=== PATIENT | female | born 1985 | race Caucasian/White ===

== ENCOUNTER → 2017-06-24 10:32 | Outpatient (CLI) | payer OTHER, MEDICAID, SELFPAY | PROVIDERS: Family Provider Family Medicine; PCP Family Medicine; Visit Provider Family Medicine | DX: Z34.91 Encounter for supervision of normal pregnancy, unspecified, first trimester (principal); Z53.9 Procedure and treatment not carried out, unspecified reason ==

== ENCOUNTER → 2017-07-09 10:40 | Outpatient (CLI) | payer OTHER, MEDICAID, SELFPAY ==
--- NOTE | 2017-07-09 10:41 | DI.US.S_ITS ---
PROCEDURE: US OB <= 14 WEEKS FETUS INDICATIONS: DATES OUTSIDE/PRIOR DATING DATA: Last menstrual period (LMP): Unknown. LMP-based estimated date of delivery (CRYSTAL): N./A.. First dating scan (date and location): 07/09/2017. Estimated date of delivery (CRYSTAL) from first dating scan: 01/25/2018. TECHNIQUE: Real-time scanning was performed of the fetus and maternal pelvic organs, with image documentation. Endovaginal scanning was also performed to better visualize the fetus and maternal ovaries. COMPARISON: None. FINDINGS: Embryo: Gestational sac contains a yolk sac and a pole which shows crown-rump length of 4.6 cm, corresponding to estimated gestational age of 11 weeks 3 days. heart rate is 173 bpm. Measurement variability in dating: +/- 4 weeks by LMP, +/- 7 days by mean sac diameter (use before 6 weeks gestation if crown-rump length not able to be measured), +/- 5 days by crown-rump length (up to 8 weeks 6 days gestation), +/- 7 days by crown-rump length (up to 13 weeks 6 days gestation). Maternal organs: Ovaries appear normal. Limited images through the kidneys demonstrate no hydronephrosis. IMPRESSION: Live intrauterine gestation at 11 weeks 3 days gestational age by crown-rump length, CRYSTAL 01/25/2018. Dictated by: Ladarius Pierce M.D. on 07/09/2017 at 11:46 Approved by: Ladarius Pierce M.D. on 07/09/2017 at 11:48
== END ==
PROVIDERS: Family Provider Family Medicine; PCP Family Medicine; Visit Provider Family Medicine
DX: Z34.91 Encounter for supervision of normal pregnancy, unspecified, first trimester (principal); Z3A.11 11 weeks gestation of pregnancy
CPT/HCPCS: 76801; 76817

== ENCOUNTER → 2017-10-14 13:36 | Outpatient (CLI) | payer OTHER, MEDICAID, SELFPAY ==
[2017-10-14 15:08] LABS: Add Manual Diff / Slide Review NO; Basophils Percent Auto 0.4 % (0-2); Eosinophils Percent Auto 0.7 % (2-4); Hemoglobin 11.5 g/dL (12.0-16.0); Lymphocytes Percent Auto 18.3 % (25-40); Mean Corpuscular Hemoglobin 31.5 PG (26-34); Mean Corpuscular Volume 90.1 fL (80-100); Monocytes Percent Auto 5.9 % (3-14); Neutrophils Absolute Auto 6100 /uL (3000-5900); Neutrophils Percent Auto 74.7 % (50-75); Platelet Count 194 X10^3/uL (150-400); Red Blood Cell Count 3.66 X10^6/uL (4.0-5.2); Red Cell Distribution Width 13.2 % (11.6-14.8); White Blood Cell Count 8.2 X10^3/uL (4.5-11.0)
[2017-10-14 16:19] LABS: Hepatitis B Surface Antigen NEGATIVE s/c (NEGATIVE); Rubella Antibody IgG 65.5 IU/mL (>15)
[2017-10-21 11:54] LABS: Rapid Plasma Reagin NON-REACTIVE
== END ==
PROVIDERS: PCP Family Medicine; Visit Provider Family Medicine
DX: Z34.91 Encounter for supervision of normal pregnancy, unspecified, first trimester (principal)
CPT/HCPCS: 36415; 80055; 86787; 86850; 86900; 86901

== ENCOUNTER → 2017-11-18 08:07 | Outpatient (CLI) | payer OTHER, MEDICAID, SELFPAY ==
--- NOTE | 2017-11-18 08:08 | DI.US.S_ITS ---
PROCEDURE: US OB >= 14 WEEKS FETUS INDICATIONS: anatomy screening OUTSIDE/PRIOR DATING DATA: Last menstrual period (LMP): Unknown. LMP-based estimated date of delivery (CRYSTAL): N./A.. First dating scan (date and location): 07/09/2017. Estimated date of delivery (CRYSTAL) from first dating scan: 01/25/2018. TECHNIQUE: Real-time scanning was performed of the fetus, with image documentation and biometric measurements. Endovaginal scanning: No COMPARISON: None. FINDINGS: General: A single living intrauterine gestation is present. Presentation: Vertex. Placenta: Placental position is right lateral, without previa. Amniotic fluid index: 13.1 cm, normal range is 5-24 cm. heart rate: 132 beats per minute. Maternal cervical canal: 3.3 cm long. Normal lower limit is 2.5 cm. biometrics: Biparietal diameter: 31 weeks 4 days Head circumference: 33 weeks Abdominal circumference: 30 weeks 4 days Femur length: 30 weeks 1 day Estimated gestational age from initial scan: 30 weeks 2 days Composite gestational age from present scan: 31 weeks 2 days Estimated weight and percentile: 1634 g; 54 percentile Measurement variability for biometric dating: +/- 7 days from 14 weeks to 15 weeks 6 days gestation, +/- 10 days from 16 weeks to 21 weeks 6 days gestation, +/- 2 weeks from 22 weeks to 27 weeks 6 days gestation, +/- 3 weeks for 28 weeks gestation or later. weight reference: 4500 g or EFW >90/95% is considered macrosomia or large for gestational age. EFW <10% is small for gestational age. EFW 5% or less is considered intra-uterine growth restriction. Anatomic survey: Neuro: Ventricles not well-visualized. Cisterna magna is normal at 3-11 mm. Cerebellum is normal in size and morphology. Nuchal skin fold: Normal at less than 6 mm between 14-21 weeks gestational age. Face: Nose and lips, facial profile are normal. Spine: No evidence for spina bifida. Heart: 4-chambered heart is present, with normal ventricular outflow tracts. Diaphragm: Diaphragm is intact. Stomach: Left-sided stomach is present. Kidneys: No hydronephrosis. Normal is less than 5 mm in 2nd trimester, less than 7 mm in 3rd trimester. Cord: 3-vessel cord has orthotopic insertion. Bladder: Normal in size. Extremities: All 4 extremities identified. IMPRESSION: Single living IUP redemonstrated and Interval growth is normal. Anatomic survey as above. Dictated by: Petros Colvin [facility] Interpreted: Sol Martins MD on 11/18/2017 at 9:55 Approved by: Sol Martins M.D. on 11/18/2017 at 15:37
== END ==
PROVIDERS: PCP Family Medicine; Visit Provider Family Medicine
DX: Z36.89 Encounter for other specified antenatal screening (principal); Z3A.31 31 weeks gestation of pregnancy
CPT/HCPCS: 76811

== ENCOUNTER → 2017-12-05 11:43 | Outpatient (CLI) | payer OTHER, MEDICAID, SELFPAY ==
[2017-12-05 13:28] LABS: Hematocrit 32.7 % (36-46); Hemoglobin 11.3 g/dL (12.0-16.0)
[2017-12-05 13:52] LABS: GTT (PREG) 1 Hour PP 50gm Dose 168 mg/dL (76-139)
== END ==
PROVIDERS: PCP Family Medicine; Visit Provider Family Medicine
DX: Z3A.26 26 weeks gestation of pregnancy (principal)
CPT/HCPCS: 36415; 82950; 85014; 85018

== ENCOUNTER → 2018-01-09 11:41 | Outpatient (CLI) | payer OTHER, MEDICAID, SELFPAY ==
[2018-01-10 08:13] LABS: Strep Grp B PCR NEG for Grp B Strep
== END ==
PROVIDERS: PCP Family Medicine; Visit Provider Family Medicine
DX: Z3A.37 37 weeks gestation of pregnancy (principal)
CPT/HCPCS: 87653

== ENCOUNTER 2018-01-22 18:45 | Outpatient (CLI) | payer OTHER, MEDICAID, SELFPAY | END 2018-01-22 20:00 | disposition home or self-care (01) | LOC: OB 01-26 14:00 | PROVIDERS: PCP Family Medicine; Visit Provider Family Medicine | DX: Z34.83 Encounter for supervision of other normal pregnancy, third trimester (principal); Z3A.40 40 weeks gestation of pregnancy | CPT/HCPCS: 59025; G0378; G0379 ==

== ENCOUNTER 2018-01-23 07:38 | Inpatient (IN) | payer OTHER, MEDICAID, SELFPAY ==
[2018-01-23] MEDS: LACTATED RINGERS 1,000 ML 100 ML IV (09:04)
[2018-01-23] MEDS: OXYTOCIN PREMIX 30 UNIT/500 ML PLAST..BAG IV (09:04)
[2018-01-23 09:09] LABS: Add Manual Diff / Slide Review NO; Basophils Percent Auto 0.7 % (0-2); Eosinophils Percent Auto 0.7 % (2-4); Hematocrit 30.6 % (36-46); Hemoglobin 10.4 g/dL (12.0-16.0); Mean Corpuscular Hemoglobin 28.9 PG (26-34); Monocytes Percent Auto 8.9 % (3-14); Neutrophils Absolute Auto 3600 /uL (1500-7000); Neutrophils Percent Auto 64.7 % (50-75); Platelet Count 138 X10^3/uL (150-400); Red Cell Distribution Width 13.4 % (11.6-14.8); White Blood Cell Count 5.5 X10^3/uL (4.5-11.0)
--- NOTE | 2018-01-23 09:23 | P.HPOB_ITS ---
OB HPI Date/Time Date of admission: 01/23/18 Date Patient Seen: 01/23/18 Time Patient Seen: 09:15 History of Present Condition Chief complaint: obs : 3 Para: 2 Estimated Date of Delivery: 01/25/18 Estimated Gestational Age (weeks): 39+5 Narrative: Paulette Hughes is a 32 year old at 39+5 weeks gestation by first trimester US. complicated by limited care due to financial reasons. Patient frequently missed appointments due to lack of gas money. 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 She also had an abnormal 1 hour GTT and failed to complete the 3 hour GTT. Also refused to check fasting blood sugars. Second complicated by macrosomia and 1 minute shoulder dystocia. She is here for induction due to the above complications. Indications Indication for induction OB: other (See HPI) History of Present care: limited care, initiated at week # (13), number of visits (5) and pounds weight gain (33) Dating criteria: based on 1st trimester US only Ultrasounds: normal 1st trimester US and normal mid trimester US Obstetrical complications: none Medical complications: none Preadmission Labs Blood type: A (+) positive -: Antibody screen: negative, GBS status: negative, HBsAG: negative, HIV: negative, HSV 1: positive, HSV 2: positive and RPR/VDLR: negative -: Rubella: immune and Varicella: immune HCT: 33 PAP: Abnormal 1 hr GTT: 168 Prior (ies) History: 11/21/06 at 36 weeks, 7 pound 6 ounce female vacuum assisted vaginal delivery 08/23/16 at 41 weeks, 9 pound 11 ounce female, 1 minute shoulder dystocia Evaluation Evaluation Baseline heart rate: 120 Variability: Moderate (11-25) monitor accelerations: Present monitor decelerations: Absent Uterine Contraction Intensity: Mild Category of Tracing: I Cervical dilation (cm): 4 Cervical effacement (%): 75 station: -1 Laboratory results: Laboratory Tests 01/23/18 08:45 WBC 5.5 RBC 3.60 L Hgb 10.4 L Hct 30.6 L MCV 85.0 MCH 28.9 MCHC 34.0 RDW 13.4 Plt Count 138 L Neut % (Auto) 64.7 Lymph % (Auto) 25.0 Scott % (Auto) 8.9 Eos % (Auto) 0.7 L Baso % (Auto) 0.7 Neut # (Auto) 3600 [facility] Medical History Abnormal Pap smear of cervix (Acute) History of gestational diabetes (Resolved) Shoulder dystocia during labor and delivery (Resolved) Family History Father No problems noted. Mother No problems noted. Social History Smoking Status: Never smoker alcohol intake: never substance use type: marijuana Meds Home Medications Medication Instructions Recorded Confirmed Type acyclovir 400 mg tablet 400 mg PO BID #60 tab 01/09/18 01/23/18 Rx Allergies Allergy/AdvReac Type Severity Reaction Status Date / Time No Known Drug Allergies Allergy Unknown Verified 01/23/18 09:48 [NO KNOWN DRUG ALLERGIES] Review of Systems Review of Systems All systems reviewed & are unremarkable except as noted in HPI and below Exam Const General: cooperative, healthy appearing and comfortable [facility] Head: normal to inspection Ears: hearing grossly normal bilaterally Nose: external nose normal Mouth: oral mucosae normal Eyes General: appearance normal, both eyes and all related structures Neck Neck: normal visual inspection Resp Effort & Inspection: normal respiratory effort Auscultation: clear to auscultation bilaterally Cardio Rate: regular rate Rhythm: regular rhythm Heart Sounds: S1 normal and S2 normal External Female Exam: external appearance normal Manual OB Exam: dilated 4, effaced 75% and station -1 Presentation: vertex Estimated Weight (lbs): 8 Skin General: no rashes or lesions noted Neuro General: alert, awake and oriented x3 Extrem General: pedal edema (1+ on right, trace on left) Objective Labs Result Diagrams: 01/23/18 08:45 Labs: Laboratory Results - last 24 hr 01/23/18 08:45 WBC 5.5 RBC 3.60 L Hgb 10.4 L Hct 30.6 L MCV 85.0 MCH 28.9 MCHC 34.0 RDW 13.4 Plt Count 138 L Neut % (Auto) 64.7 Lymph % (Auto) 25.0 Scott % (Auto) 8.9 Eos % (Auto) 0.7 L Baso % (Auto) 0.7 Neut # (Auto) 3600 Assessment and Plan (1) 39 weeks gestation of : Current visit: Yes Status: Acute (2) Limited care: Current visit: Yes Status: Acute (3) H/O shoulder dystocia in prior , currently : Current visit: Yes Status: Acute (4) H/O macrosomia in in prior , currently : Current visit: Yes Status: Acute Plan: Plan: 32 year old at 39+5 weeks gestation with limited care, h/o macrosomia with shoulder dystocia and abnormal 1 hr GTT without completion of 3 hr GTT here for induction for the previously mentioned issues. Flynn score of 10. Plan - Pitocin induction - Epidural upon request - Anticipate vaginal delivery
[2018-01-23 09:46] VITALS: BP 122/82
--- NOTE | 2018-01-23 15:57 | PM.OBPNLAB ---
Date/Time Date Patient Seen: 01/23/18 Time Patient Seen: 15:58 Pain Control Pain control: tolerating well and epidural Pelvic Exam Dilation (cm): 7 Effacement (%): 100 station: -1 Amniotic membrane status: Ruptured (blood tinged but otherwise clear) Contractions Pitocin rate (mU/min): 18 Contraction frequency (min): 2 Contraction pattern: Regular Contraction intensity: Strong/Firm Status status: Category l Heart Rate Baseline: 120 Monitor Accelerations: Present Monitor Decelerations: Absent Monitor Variability: Moderate Assessment and Plan Assessment: active labor Plan: continuous present management
--- NOTE | 2018-01-23 18:34 | PM.OBPRVD ---
Narrative: VAGINAL DELIVERY NOTE BRIEF HISTORY: Patient is a 32-year-old [id number] at 39+5 weeks who gave on 01/23/18 at 18:06. CRYSTAL: 01/25/18 Hospital problems: 39 weeks of H/o macrosomia H/o shoulder dystocia Epidural anesthesia STAGE I: Labor Indications for Induction: h/o shoulder dystocia, h/o macrosomia, limited care Induction agents: pitocin Stage 1 onset: 01/23/18 09:10 Augmentation: AROM with clear fluid at 15:54 Complete at 17:40. Stage 1 duration 8 hours and 30 minuts. Analgesia for labor was with epidural. FHT category 1 throughout stage 1. STAGE II: Delivery The second stage of labor lasted 26 minutes. Spontaneous vaginal delivery occurred at 18:06 on 01/23/18. Presentation was vertex and RONNI orientation. Nuchal cord x1 which was reduced. There was a 30 second shoulder dystocia which resolved with McRobert's maneuver and suprapubic pressure. Infant was placed on mother's abdomen immediately after delivery. scores were 8 at one minute and 9 at five minutes. STAGE III: Placenta/Cord The third stage of labor lasted 5 minutes. Placental delivered after active management and it appeared intact with a three vessel cord. Pitocin bolus given after delivery of placenta. There were bilateral superior first degree labial tears which were repaired with 4-0 vicryl. Complications: none. EBL: 300 mL. Needle and sponge counts were correct. The vagina was inspected and no items were left in situ. Patient was doing well with Camilla, her and mother at bedside.
[2018-01-23 22:22] VITALS: TEMP 37.3
[2018-01-23] MEDS: IBUPROFEN 600 MG TABLET PO (22:22)
[2018-01-24] MEDS: IBUPROFEN 600 MG TABLET PO ×2 (04:20→10:25)
[2018-01-24] MEDS: DOCUSATE 250 MG CAPSULE PO (10:25)
--- NOTE | 2018-01-24 13:37 | P.DS_ITS ---
Discharge Providers Date of admission: 01/23/18 07:38 Primary care physician: Roslyn Meléndez DO Consults: 01/23/18 20:05 Consult to Cloth Covered Helmet Puller Routine Comment: Discharge provider: Roslyn Meléndez DO Discharge Date: 01/24/18 Summary Date Patient Seen: 01/24/18 Time Patient Seen: 13:14 Hospital Course: Patient is a 32 year old [id number] s/p on 01/23/18 after induction for the below listed reasons. She progressed well with pitocin and AROM and delivered at healthy female infant after a 30 second shoulder dystocia which resolved with McRobert's maneuver and suprapubic pressure. did well immediately after delivery. Pain well-controlled throughout labor with epidural. course was uncomplicated. Bleeding was moderate. Patient was voiding , stooling, ambulating and eating without difficulty. going well. Pain well-controlled with ibuprofen. Counseled patient to call for fevers, severe pain or bleeding through more than a pad an hour. Follow up in six weeks for exam. Exam Temp 97.6, BP 108/79, HR 59 Gen: Well-appearing, NAD CV: RRR, no murmur Lungs: CTAB Abdomen: Soft, NT/ND. Bowel tones active. Uterus firm 1 cm below umbilicus Ext: 1+ edema on right, trace on left, extremities warm Discharge Diagnosis (1) 39 weeks gestation of : Status: Acute (2) Limited care: Status: Acute (3) H/O shoulder dystocia in prior , currently : Status: Acute (4) H/O macrosomia in infant in prior , currently : Status: Acute (5) Spontaneous vaginal delivery: Status: Acute Time Spent with Patient Total time spent providing and/or coordinating discharge services: Objective Labs Result Diagrams: 01/23/18 08:45 Discharge Plan Discharge Plan Patient Disposition: Home Discharge Med Rec/Prescriptions Prescriptions: New ibuprofen 600 mg Tablet 600 mg PO Q6HR PRN (Reason: Pain, Mild (1-3)) Qty: 30 RF: 0 Discontinued acyclovir 400 mg tablet 400 mg PO BID Qty: 60 RF: 0 Follow up/Referrals: Roslyn Meléndez DO [Primary Care Provider] - 6 Weeks (Please call [facility] and make an appointment for 6 weeks) Visit Report/Discharge Packet Instructions: DI for Labor and Delivery, Vaginal Visit Report Forms: Stroke Signs & Symptoms Discharge Data Primary Care Provider: Roslyn Meléndez Attending Provider: Roslyn Meléndez Admit Date/Time: 01/23/18 07:38
[2018-01-24 14:38] VITALS: BP 122/82; PULSE 76; RESP 16; TEMP 37.3
== END 2018-01-24 16:03 | disposition home or self-care (01) | DRG 560 ==
PROVIDERS: Admitting Provider Family Medicine; PCP Family Medicine; Visit Provider Family Medicine
DX: O98.32 Other infections with a predominantly sexual mode of transmission complicating childbirth (principal); A60.00 Herpesviral infection of urogenital system, unspecified; O69.1XX0 Labor and delivery complicated by cord around neck, with compression, not applicable or unspecified; Z3A.39 39 weeks gestation of pregnancy; Z37.0 Single live birth; O66.0 Obstructed labor due to shoulder dystocia; O70.0 First degree perineal laceration during delivery
CPT/HCPCS: 01967; 36415; 59025; 59050; 59409; 85025; 86850; 86900; 86901; G0379; J2590

== ENCOUNTER 2018-07-03 11:58 | Day surgery (SDC) | payer OTHER, MEDICAID, SELFPAY ==
[2018-06-23 10:03] VITALS: BMI 26.2
[2018-07-03] VITALS (8 sets, daily range): BP systolic 111–131; BP diastolic 65–95; PULSE 45–91; RESP 13–20; TEMP 36–37.2; O2SAT 97–100; BMI 26.1
--- NOTE | 2018-07-03 | PATH_ITS ---
[facility] Accession Number: [id number] . 01 Material submitted: . PART A: cervix - 6 O'CLOCK PART B: cervix - 12 O'CLOCK PART C: cervix - DEEP CERVICAL BIOPSY PART D: endocervix - ECC . 02 Diagnosis: A. Cervix at 6 o'clock, LEEP Biopsy: High-grade squamous intraepithelial lesion/TAYLER 2-3. High-grade squamous intraepithelial lesion/TAYLER 2-3 focally involves the endocervical margin. The ectocervical margin is indetermine due to tissue disruption. . B. Cervix at 12 o'clock, LEEP Biopsy: High-grade squamous intraepithelial lesion/TAYLER 2-3. The apparent, intact ectocervical and endocervical margins are negative for dysplasia. . C. Deep Cervical Biopsy: Mildly inflamed endocervical tissue; negative for glandular squamous dysplasia or malignancy. . D. ECC: Scant endocervical tissue fragments; negative for glandular dysplasia and malignancy. [facility]/07/07/2018 . 02 Comment: This patient's previous Pap smear report ([id number], 03/07/2018) is reviewed, and the atypical squamous cells concerning for severe dysplasia present on the previous Pap smear could derive from the current biopsy tissue. These findings do correlate. . 02 Electronically signed: . Madiha Arredondo MD, Pathologist NPI- [id number] . 01 Gross description: . (A) Received in formalin, labeled 6 o'clock cervical biopsy, is an unoriented piece of cervical tissue (1.4 x 1.2 x 0.4 cm) with pale pink smooth and shiny mucosa. No nodules, masses or lesions are identified. The possible endocervical margin is inked orange and the possible ectocervical and stromal margins are inked blue. Serially sectioned and entirely submitted in cassettes A1-A2. (B) Received in formalin, labeled 12 o'clock cervical biopsy, is an unoriented piece of cervical tissue (1.5 x 0.9 x 0.2 cm) with sierra- white smooth and shiny and focally rough mucosa. No nodules, masses or lesions are identified. The possible endocervical margin is inked orange and the possible ectocervical and stromal margins are inked blue. Serially sectioned and entirely submitted in cassettes B1-B2. (C) Received in formalin, labeled deep cervical biopsy, is an unoriented piece of cervical tissue (1.0 x 0.9 x 0.2 cm) with a neville-pink dull rough mucosa. No nodules, masses or lesions are identified. The ectocervical and endocervical margins cannot be determined therefore the resection margin is inked blue. Serially sectioned and entirely submitted in cassette C1. (D) Received in formalin, labeled ECC, is sierra-neville turbid mucoid material containing multiple fragments of red-brown tissue (1.8 x 1.5 x 0.3 cm in aggregate). Filtered and entirely submitted in cassette D1. ([id number]) /[facility] . 02 Pathologist provided ICD-10: N87.1 . 02 CPT . 199205, 436345, 627754, 354177 Performed at: 01 [facility] [address] [id number] MD Hiram De Oliveira MD Phone: [phone] Performed at: 02 [facility] [id number] [place] [id number] MD Ebony Salgado MD Phone: [phone]
--- NOTE | 2018-07-03 13:16 | PM.PREOP ---
Pre-operative Note Interval Note History & Physical reviewed/Exam performed by Physician: Yes Changes to H&P: No
[2018-07-03] MEDS: LACTATED RINGERS 1,000 ML 100 ML IV (13:22)
--- NOTE | 2018-07-03 13:33 | SUR.OPER ---
Lithotomy on padded OR bed, head on pillow, arms secured on padded arm boards at <90 degrees abduction. Legs secured in padded yellow fins stirrups.
[2018-07-03] MEDS: POTASSIUM IODIDE/IODINE 473 ML SOLUTION TOP (13:41)
--- NOTE | 2018-07-03 13:46 | PM.OP.1 ---
Operative Date/Time/Diagnoses Date of procedure: 07/03/18 Time of procedure: 13:46 Pre-op diagnosis: TAYLER-III of the cervix Post-op diagnosis: same Procedure & Clinicians Procedure: LEEP with ECC Same procedure as scheduled: Yes Indications: TAYLER-III of the cervix Surgeon: Kiya Hopson Click Yes if Unassisted: Yes Anesthesia Type: General Operative Notes Findings: Normal exam under anesthesia. Nonstaining areas of the cervix at 6 and 12:00 p.m. Closure Type: not applicable Specimen(s): other (Biopsy of the cervix labeled as 6:00 a.m. and 12:00 p.m. deep biopsy and ECC) Estimated Blood Loss (mL): 2 Blood products transfused: none Procedure in detail: Patient was brought to the operating room she underwent general. She was placed in low stirrups. A coated bivalve speculum was placed into the vagina. The cervix was injected with 0.5% Marcaine with epinephrine. A coated single-tooth tenaculum was placed on the anterior lip of the cervix. The cervix was stained with Lugol's. The loop set at 60 W of cutting was used to remove the entire squamocolumnar junction. This was performed in 2 sections 1 from approximately 8:00 to 2:00 labeled as 6:00. The rest of the squamocolumnar junction was removed and labeled as 12:00 p.m. A slightly deeper section was taken of the endocervical canal. An ECC was performed and sent separately. The tissue was cauterized external to the LEEP with ball cautery to extend the treatment zone. The patient went to recovery room in good condition. Counts of instruments and sponges were correct. The tissue was sent for pathology. Complications: none Condition: stable Disposition: same day surgery Plan for aftercare: Follow-up in treatment based on biopsy results
[2018-07-03] MEDS: BUPIVACAINE 0.5% W/ EPI (PF) VIAL 30 ML INJ (13:54)
== END 2018-07-03 14:40 ==
PROVIDERS: PCP Family Medicine; Visit Provider Specialist
PROC: 0UBC7ZZ Excision of Cervix, Via Natural or Artificial Opening (ICD-10-PCS; CPT 57522; principal; 2018-07-03 13:30)
DX: N87.1 Moderate cervical dysplasia (principal)
CPT/HCPCS: 57522; J0461; J1885; J2405; J2704; J3010

== ENCOUNTER → 2018-12-14 11:28 | Outpatient (CLI) | payer OTHER, MEDICAID, SELFPAY ==
--- NOTE | 2018-12-14 11:28 | DI.MRI.S_ITS ---
PROCEDURE: MR HEAD/BRAIN WO/W CON INDICATIONS: optic neuritis TECHNIQUE: Noncontrast axial T1 spin echo, axial T2 fast spin echo, sagittal and axial FLAIR, coronal T2 fast spin echo, axial gradient echo, axial diffusion and ADC through the brain. After the administration of contrast, axial and coronal 3D VIBE or T1 spin echo with fat saturation through the brain. COMPARISON: None. FINDINGS: Image quality: Excellent. CSF Spaces: Basal cisterns are patent. No extra-axial fluid collections. Ventricles are normal in size and shape. Brain: No midline shift. There is a punctate, 3 mm diameter high signal intensity focus within the posterior limb of the left internal capsule, which is nonspecific. 5 mm diameter high FLAIR signal intensity foci within the left frontal subcortical white matter, as well as the right parietal periventricular white matter are present. No intracranial bleeds or masses. No abnormal intracranial enhancement. The brainstem appears normal. Diffusion-weighted images demonstrate no acute ischemic insults. No chronic ischemic insults. Normal intravascular flow voids are present. Skull and face: Calvarial marrow is normal in signal. Orbits appear normal. Sinuses: Sinuses and mastoids appear clear. IMPRESSION: 1. Negative evaluation of the orbits. 2. There are a few small scattered foci of elevated FLAIR signal intensity within the white matter as described above. Differential considerations include early small vessel ischemic disease, diabetes mellitus, vasculitides, migraines, and demyelinating disorders, such as multiple sclerosis. Dictated by: Tracy Mendez M.D. on 12/14/2018 at 14:12 Approved by: Tracy Mendez M.D. on 12/14/2018 at 14:15
== END ==
PROVIDERS: PCP Family Medicine; Visit Provider Family Medicine
DX: H46.9 Unspecified optic neuritis (principal)
CPT/HCPCS: 70553; A9579

== ENCOUNTER → 2020-01-05 12:13 | Outpatient (CLI) | payer OTHER, MEDICAID, SELFPAY ==
[2020-01-05 12:53] LABS: Add Manual Diff / Slide Review NO; Basophils Absolute Auto 0 /uL (0-100); Basophils Percent Auto 1.2 % (0-2); Eosinophils Absolute Auto 100 /uL (0-450); Eosinophils Percent Auto 2.2 % (2-4); Hematocrit 38.5 % (36-46); Hemoglobin 13.1 g/dL (12.0-16.0); Lymphocytes Absolute Auto 1400 /uL (1100-4500); Lymphocytes Percent Auto 38.5 % (25-40); Mean Corpuscular HGB Conc 34.1 % (30-36); Mean Corpuscular Hemoglobin 29.6 PG (26-34); Mean Corpuscular Volume 86.9 fL (80-100); Monocytes Absolute Auto 300 /uL (0-900); Monocytes Percent Auto 8.8 % (3-14); Neutrophils Absolute Auto 1800 /uL (1500-7000); Neutrophils Percent Auto 49.3 % (50-75); Platelet Count 226 X10^3/uL (150-400); Red Blood Cell Count 4.44 X10^6/uL (4.0-5.2); Red Cell Distribution Width 12.8 % (11.6-14.8); White Blood Cell Count 3.7 X10^3/uL (4.5-11.0)
[2020-01-05 13:06] LABS: Hemoglobin A1C% w Est Avg Glu 5.3 % (4.0-6.0)
[2020-01-05 13:13] LABS: Alanine Aminotransferase 10 IU/L (<35); Albumin 4.6 g/dL (3.5-5.0); Albumin Globulin Ratio 1.4 (1.0-2.8); Alkaline Phosphatase 65 U/L (38-126); Aspartate Aminotransferase 19 IU/L (14-36); BUN Creatinine Ratio 24.2 (6-22); Bilirubin Total 0.6 mg/dL (0.2-1.3); Blood Urea Nitrogen 16 mg/dL (7-17); Calcium 9.3 mg/dL (8.4-10.2); Carbon Dioxide 28 mmol/L (22-32); Chloride 104 mmol/L (98-107); Estimated Glomerular Filt Rate > 60.0 mL/min (>60); Globulin 3.4 g/dL (1.7-4.1); Glucose 98 mg/dL (70-100); HEMOLYSIS < 15 (0-50); Potassium 4.1 mmol/L (3.4-5.1); Sodium 137 mmol/L (137-145)
[2020-01-05 13:14] LABS: C-Reactive Protein Quant < 0.5 mg/dL (<1.0)
== END ==
PROVIDERS: PCP Family Medicine; Referring Provider Family Medicine; Visit Provider Family Medicine
DX: H46.9 Unspecified optic neuritis (principal)
CPT/HCPCS: 36415; 80053; 83036; 85025; 86140

== ENCOUNTER → 2022-04-10 11:31 | Outpatient (CLI) | payer OTHER, MEDICAID, SELFPAY ==
[2022-04-10 12:16] LABS: Influenza A - CEPHEID Flu A NEGATIVE (NEGATIVE); Influenza B - CEPHEID Flu B NEGATIVE (NEGATIVE); Respiratory Syncytial Virus Negative (Negative)
[2022-04-10 12:17] LABS: COVID-19 CEPHEID 4-PLEX PCR POSITIVE (Negative)
== END ==
PROVIDERS: PCP Family Medicine; Visit Provider Nurse Practitioner Family
DX: R05.1 Acute cough (principal)
CPT/HCPCS: 0241U